=== PATIENT | female | born 1990 | race Caucasian/White ===

== ENCOUNTER 2017-04-23 16:05 | Emergency (ER) | payer OTHER ==
[2017-04-23 16:44] VITALS: BP 91/55
--- NOTE | 2017-04-23 17:07 | UC ---
Throat Pain/Nasal Blaze HPI - HPI Summary HPI Summary: Pt presents with 1 week of sinus pain/pressure/congestion. 2 days ago developed dry cough and mild sore throat. She has been taking tylenol cold and flu with mild relief. Denies fever, chills, SOB, chest pain, abdominal pain, n/v/d/c - History of Current Complaint Chief Complaint: UCRespiratory Stated Complaint: CONGESTION,ST,COUGH Time Seen by Provider: 04/23/17 17:06 Hx Obtained From: Patient Hx Last Menstrual Period: <1 WEEK AGO Onset/Duration: Gradual Onset Severity: Moderate Pain Intensity: 4 Pain Scale Used: 0-10 Numeric Cough: Nonproductive - Allergies/Home Medications Allergies/Adverse Reactions: Allergies Allergy/AdvReac Type Severity Reaction Status Date / Time Penicillins [PCN] Allergy Severe Anaphylatic Verified 04/23/17 16:44 Shock Home Medications: Home Medications Hydrocodone Bitartrate [Zohydro ER] 5 mg PO BID PRN 04/23/17 [History Confirmed 04/23/17] PMH/Surg Hx/FS Hx/Imm Hx Previously Healthy: Yes - Surgical History Surgical History: Yes Surgery Procedure, Year, and Place: wisdom teeth,-, RIGHT FOOT SURGICAL REPAIR CHILD- NO HARDWARE PER PT - Family History Known Family History: Positive: Hypertension - Social History Lives: With Family Alcohol Use: None Substance Use Type: None Smoking Status (MU): Light Every Day Tobacco Smoker Type: eCigarettes Household Exposure Type: Cigarettes - Immunization History Most Recent Influenza Vaccination: none Review of Systems Constitutional: Negative Skin: Negative Eyes: Negative ENT: Sore Throat, Nasal Discharge, Sinus Congestion, Sinus Pain/Tenderness Respiratory: Cough Cardiovascular: Negative Gastrointestinal: Negative All Other Systems Reviewed And Are Negative: Yes Physical Exam Triage Information Reviewed: Yes Appearance: Well-Appearing, No Pain Distress, Well-Nourished Vital Signs: Initial Vital Signs Temp 98.8 F 04/23/17 16:41 Pulse 88 04/23/17 16:41 Resp 16 04/23/17 16:41 BP 91/55 04/23/17 16:41 Pulse Ox 100 04/23/17 16:41 Vital Signs Reviewed: Yes Eyes: Positive: Conjunctiva Clear. Negative: Conjunctiva Inflamed, Discharge ENT: Positive: Hearing grossly normal, Pharynx normal, Nasal congestion, Nasal drainage, TMs normal, Sinus tenderness, Uvula midline. Negative: Pharyngeal erythema, TM bulging, TM dull, TM red, Tonsillar swelling, Tonsillar exudate, Hoarse voice Neck: Positive: Supple, Nontender, No Lymphadenopathy Respiratory: Positive: Chest non-tender, Lungs clear, Normal breath sounds, No respiratory distress, No accessory muscle use Cardiovascular: Positive: RRR, No Murmur, Pulses Normal Neurological: Positive: Alert Psychological: Positive: Age Appropriate Behavior Skin: Negative: rashes Throat Pain/Nasal Course/Dx - Course Course Of Treatment: Sinusitis. Cough. She says that zpak does not work for her and she usually takes Clindamycin if she needs an antibiotic. - Differential Dx/Diagnosis Differential Diagnosis/HQI/PQRI: Pharyngitis, Sinusitis, Tonsillitis, URI Provider Diagnoses: Sinusitis. Cough Discharge - Discharge Plan Condition: Stable Disposition: HOME Prescriptions: Clindamycin HCl [Clindamycin 150 MG CAP*] 150 mg PO QID #40 cap Patient Education Materials: Sinusitis (ED) Referrals: Brook Costa [Primary Care Provider] - Additional Instructions: If you develop a fever, shortness of breath, chest pain, new or worsening symptoms - please call your PCP or go to the ED.
== END 2017-04-23 17:32 | disposition home or self-care (01) ==
LOC: UCEAST 16:05
DX: J32.9 Chronic sinusitis, unspecified (principal); R05 Cough; Z88.0 Allergy status to penicillin; F17.210 Nicotine dependence, cigarettes, uncomplicated
CPT/HCPCS: 99212; G0463

== ENCOUNTER 2017-07-28 17:33 | Emergency (ER) | payer OTHER ==
[2017-07-28 17:41] VITALS: BP 101/62
--- NOTE | 2017-07-28 18:17 | UC ---
Back Pain HPI - HPI Summary HPI Summary: pt has had upper back pain over past few weeks. SHe has had same pain with past -resolves when not . Sees Dr. Juarez for NOrco and "adjustments". also has recently seen OB. she was Rx'd Zantac by OB and TUMS. she says anything she eats or drinks causes pain to occur-even water,. NO N/V/D or fever. has felt baby move today many times - History of Current Complaint Chief Complaint: UCBackPain Stated Complaint: UPPER BACK PAIN/CHEST Time Seen by Provider: 07/28/17 18:00 Hx Obtained From: Patient Hx Last Menstrual Period: January 2017 ?: Yes Onset/Duration: Gradual Onset Timing: Intermittent Severity Initially: Moderate Severity Currently: Moderate Pain Intensity: 8 Back Pain: Is Discrete @ - upper left back Character: Aching Aggravating Factor(s): Movement, Other - eating/drinking Alleviating Factor(s): Position Associated Signs And Symptoms: Positive: Negative - Allergies/Home Medications Allergies/Adverse Reactions: Allergies Allergy/AdvReac Type Severity Reaction Status Date / Time Penicillins Allergy Anaphylatic Verified 07/28/17 17:41 Shock Home Medications: Home Medications Acetaminophen [Tylenol Extra Strength] 500 mg PO DAILY 07/28/17 [History Confirmed 07/28/17] PMH/Surg Hx/FS Hx/Imm Hx Previously Healthy: Yes - Surgical History Surgical History: Yes Surgery Procedure, Year, and Place: wisdom teeth,-, RIGHT FOOT SURGICAL REPAIR CHILD- NO HARDWARE PER PT - Family History Known Family History: Positive: Hypertension - Social History Occupation: Unemployed Lives: With Family Alcohol Use: None Substance Use Type: Prescribed Smoking Status (MU): Light Every Day Tobacco Smoker Type: eCigarettes Household Exposure Type: Cigarettes Cessation Counseling: Patient Advised to Stop - Immunization History Most Recent Influenza Vaccination: none Review of Systems Constitutional: Negative Respiratory: Negative Cardiovascular: Negative Gastrointestinal: Negative Neurovascular: Negative Neurological: Negative Psychological: Negative Is Patient Immunocompromised?: No All Other Systems Reviewed And Are Negative: Yes Physical Exam Triage Information Reviewed: Yes Appearance: Well-Appearing, No Pain Distress, Well-Nourished Vital Signs: Initial Vital Signs Temp 98.8 F 07/28/17 17:37 Pulse 108 07/28/17 17:37 Resp 12 07/28/17 17:37 BP 101/62 07/28/17 17:37 Pulse Ox 100 07/28/17 17:37 Vital Signs Reviewed: Yes Respiratory Exam: Normal Cardiovascular Exam: Normal Abdominal Exam: Other - gravid and non-tender Musculoskeletal: Positive: Strength Intact, ROM Intact, Other: - palp tenderness upper back, no rash or swelling Neurological Exam: Normal Neurological: Positive: Alert Psychological Exam: Normal Skin Exam: Normal Back Pain Course/Dx - Differential Dx/Diagnosis Differential Diagnosis/HQI/PQRI: Strain, Sprain, Other - gallbladder disease, esophagitis Provider Diagnoses: esophagitis Discharge - Sign-Out/Discharge Documenting (check all that apply): Discharge - Discharge Plan Condition: Stable Disposition: HOME Patient Education Materials: Esophagitis (ED) Referrals: Jayshree HI,Brook Phipps [Primary Care Provider] - Additional Instructions: follow-up with [facility] on Sunday for recheck eat small meals with bland diet If at anytime your symptoms change or worsen-please report to ER - Billing Disposition and Condition Condition: STABLE Disposition: HOME
== END 2017-07-28 18:20 | disposition home or self-care (01) ==
LOC: UCEAST 17:33
DX: K20.9 Esophagitis, unspecified (principal); M54.6 Pain in thoracic spine; Z88.0 Allergy status to penicillin; F17.210 Nicotine dependence, cigarettes, uncomplicated
CPT/HCPCS: 99211; G0463

== ENCOUNTER 2017-10-26 06:16 | Inpatient (IN) | payer OTHER ==
[2017-10-26] MEDS ORDERED: Famotidine IV* 10 MG/ML 2 ML (20 mg) IV ONE (07:00)
[2017-10-26] MEDS ORDERED: Sodium Citrate/Citric Acid* 15 ML UDC PO ONE (07:00)
[2017-10-26] MEDS ORDERED: Buffered Lidocaine 0.9% SYRIN* 5 ML/SYR SYRINGE INTRADERM ONE (07:00)
[2017-10-26] MEDS ORDERED: Clindamycin 900 MG IVPREMIX(* 900 MG/50 ML SDV IV ONE (07:12)
[2017-10-26] MEDS ORDERED: Gentamicin ADULT (*) 300 MG in NS 0.9% 100 ML* 100 ML IVPB ONE (07:15)
[2017-10-26] MEDS ORDERED: Morphine PF AMP (0.5MG/ML)* 5 MG/10 ML AMP ONE (07:21)
[2017-10-26] MEDS ORDERED: OXYTOCIN* 10 UNITS/ML 1 ML VIAL ONE (07:22)
[2017-10-26] MEDS ORDERED: Ondansetron INJ* 2 MG/ML VIAL ONE (07:22)
[2017-10-26] MEDS ORDERED: Dexamethasone IV* 4 MG/ML 1 ML (4 MG) ONE (07:22)
[2017-10-26] MEDS ORDERED: Bupivacaine-MPF SPINAL* 7.5 MG/ML - 2ML AMP ONE (07:28)
[2017-10-26] MEDS ORDERED: Bupivacaine 0.25% W/EPI* 10 ML SDV ONE (07:28)
[2017-10-26] MEDS ORDERED: Phenylephrine IV* 40 MCG/ML 10 ML SYRINGE ONE (08:38)
[2017-10-26] MEDS ORDERED: Ketorolac INJ* 30 MG/ML 1 ML VIAL IV PRN (08:39)
[2017-10-26] MEDS ORDERED: Naloxone* 0.4 MG/ML 1 ML VIAL IV PRN ×2 (08:39)
[2017-10-26] MEDS ORDERED: oxyCODONE/Acetamin 5/325 MG* TAB PO PRN ×3 (08:39→09:05)
[2017-10-26] MEDS ORDERED: fentaNYL* 50 MCG/ML 2 ML VIAL (100 MCG VIAL) IV PRN (08:39)
[2017-10-26] MEDS ORDERED: DiMENhydriNATE IV* 50 MG/ML VIAL IV PUSH PRN (08:39)
[2017-10-26] MEDS ORDERED: Nalbuphine* 10 MG/ML 1 ML VIAL IV PRN (08:39)
[2017-10-26] MEDS ORDERED: Ondansetron INJ* 2 MG/ML VIAL IV PRN (08:39)
[2017-10-26] MEDS ORDERED: Witch Hazel PAD* JAR TOPICAL PRN (09:05)
[2017-10-26] MEDS ORDERED: Glycerin ADULT SUPP PR PRN (09:05)
[2017-10-26] MEDS ORDERED: Acetaminophen TAB* 325 MG PO PRN (09:05)
[2017-10-26] MEDS ORDERED: Ibuprofen TAB* 600 MG PO PRN (09:05)
[2017-10-26] MEDS ORDERED: Dibucaine 1% 28.35 GM TUBE PR PRN (09:05)
[2017-10-26] MEDS ORDERED: Oxytocin in LR* 20 UNITS/1,000 ML BAG IVPB SCH (10:00)
[2017-10-26] MEDS: Ibuprofen TAB* 600 MG PO SCH ×2 (11:10→18:00)
[2017-10-26] MEDS ORDERED: oxyCODONE/Acetamin 5/325 MG* TAB ONE (11:51)
[2017-10-26] MEDS: oxyCODONE/Acetamin 5/325 MG* TAB PO PRN ×2 (11:53→20:02)
[2017-10-26] MEDS: Simethicone TAB* 80 MG TAB.CHEW PO SCH ×3 (14:52→20:02)
[2017-10-26] MEDS: Docusate CAP* 100 MG PO SCH (19:15)
[2017-10-27] MEDS ORDERED: Acetaminophen TAB* 325 MG PO PRN
[2017-10-27] MEDS: Ibuprofen TAB* 600 MG PO SCH ×2 (00:10→11:43)
[2017-10-27] MEDS: oxyCODONE/Acetamin 5/325 MG* TAB PO PRN ×6 (00:10→21:47)
--- NOTE | 2017-10-27 02:41 | OP ---
OPERATIVE REPORT: DATE OF OPERATION: 10/26/17. DATE OF : 88. SURGEON: Beth Lemus MD LINE ASSEMBLY UTILITY WORKER: Bettye Mohamud MD ANESTHESIOLOGIST: Dr. Hernandez. ANESTHESIA: Spinal. PRE-OP DIAGNOSIS: Intrauterine at 39-0/7 weeks, desires repeat section. POST-OP DIAGNOSIS: Intrauterine at 39-0/7 weeks, desires repeat section, delivere d. OPERATIVE PROCEDURE: Repeat low-transverse section. ESTIMATED BLOOD LOSS: 500 mL. FLUIDS: 1300 mL of crystalloid. URINE OUTPUT: 100 mL of clear yellow urine. FINDINGS: Revealed a vertex female , Apgars 9 at 1 minute and 9 at 5 minutes. Weight was 7 po unds 11 ounces. No nuchal cord. No meconium. Normal- appearing tubes and ovaries bilaterally. Nor justice palpated uterine cavity without evidence of retained placenta or membranes. Please note that t he lower uterine segment was 2-mm thickness in its finished area and that hair and membranes co uld be seen through this window of tissue in the lower uterine segments. COMPLICATIONS: None apparent. DISPOSITION: Stable to recovery room. DESCRIPTION OF PROCEDURE: The patient was placed in dorsal lithotomy position. Abdomen was prepped a nd draped in a sterile standard fashion. Anesthesia was tested to appropriate level. An incision wa s made to prior incision after universal protocol was completed for correct procedure, patient, and p osition, and testing for adequate anesthesia. This incision was carried down through the fascia. Fa scial incision was then extended laterally and superiorly using curved Ferreira scissors. Fascia was sep arated superiorly and inferiorly with blunt and sharp dissection, and the peritoneum was then entered bluntly. The peritoneal incision was extended superiorly and inferiorly by directly visualizing bow el and bladder. The bladder blade was inserted. The lower uterine segment was identified and noted t o have this window within the lower uterine segment. As I said the head and hair could b e seen through this 2 mm thickness of the uterine wall. Amniotomy was created with scalpel and this i ncision was extended bluntly. The infant was delivered vertex, anterior-posterior shoulder delivered . No nuchal cord. No meconium. The cord was allowed to pulse for greater than 60 seconds, and the cord was clamped and then cut, and the infant was then handed off to awaiting railroad yard worker, Dr. Nicol portillo. Appropriate cord blood was obtained. Placenta was then manually extracted and noted to be in tact with 3-vessel cord. The uterus was exteriorized, wrapped in warm, moist laparotomy sponge, and the uterine cavity was explored, noted to be free of any placental tissue or membranes. A broad Andrew s was placed on the lower uterine segment and angle of the uterus, and hysterotomy site was reapproxi mated in 2 layers, first layer running locked 0 Vicryl, second layer running imbricated 0 Vicryl for complete hemostasis and reapproximation of the hysterotomy site. The uterus was returned intraabdomi neil after normal tubes and ovaries were visualized. The peritoneum was then clamped with Judith and the lower uterine segment and hysterotomy site was re-visualized and noted to be hemostatic. The per itoneum was then reapproximated with 3-0 Vicryl in a running fashion. The subfascial area was visual ized and noted to be hemostatic. Fascia was reapproximated using 0 Vicryl x2 in a running fashion, s ubcu, was lavaged, hemostasis assured, and the skin was reapproximated using 4-0 Monocryl in a subcut icular fashion. Mastisol and Steris were applied. All sponge, needles, and blade counts were correc t throughout the case. The patient tolerated the procedure well. [id number]/[facility] #: [id number]
[2017-10-27] MEDS: Ibuprofen TAB* 600 MG PO PRN ×3 (05:40→20:28)
[2017-10-27 05:57] LABS: Hematocrit 29 % (35-47); Hemoglobin 9.4 g/dl (12.0-16.0); Mean Corpuscular HGB Conc 33 g/dl (31-36); Mean Corpuscular Hemoglobin 26 pg (27-31); Mean Corpuscular Volume 79 fL (80-97); Mean Platelet Volume 7.8 um3 (7.4-10.4); Platelet Count 227 10^3/ul (150-450); Red Blood Count 3.65 10^6/ul (4.00-5.40); Red Cell Distribution Width 16 % (10.5-15); White Blood Count 17.4 10^3/ul (3.5-10.8)
[2017-10-27 06:26] LABS: ABS Basophils 0.1 10^3/ul (0-0.2); ABS Eosinophils 0.1 10^3/ul (0-0.6); ABS Lymphocytes 2.6 10^3/ul (1.0-4.8); ABS Monocytes 2.1 10^3/ul (0-0.8); ABS Neutrophils 12.5 10^3/ul (1.5-7.7); ABS Nucleated RBC 0 10^3/ul; Eosinophil % 0.4 % (0-6); Lymphocyte % 14.9 % (25-47); Nucleated Red Blood Cells % 0
[2017-10-27] MEDS: Docusate CAP* 100 MG PO SCH ×4 (09:19→20:28)
[2017-10-27] MEDS: Simethicone TAB* 80 MG TAB.CHEW PO SCH ×3 (09:19→20:28)
[2017-10-27] MEDS: Ferrous Gluconate TAB* 324 MG TAB PO SCH ×2 (09:20→20:28)
[2017-10-27] MEDS: PRENATAL PO SCH (15:57)
[2017-10-27] MEDS: [UNRECOGNIZED DRUG - OTHER] PO SCH (15:57)
[2017-10-28] MEDS: Ibuprofen TAB* 600 MG PO PRN ×2 (02:13→08:31)
[2017-10-28] MEDS: oxyCODONE/Acetamin 5/325 MG* TAB PO PRN ×3 (02:13→10:25)
[2017-10-28 08:09] VITALS: BP 91/49
[2017-10-28] MEDS: Ferrous Gluconate TAB* 324 MG TAB PO SCH (08:30)
[2017-10-28] MEDS: Simethicone TAB* 80 MG TAB.CHEW PO SCH ×2 (09:01→10:25)
[2017-10-28] MEDS: [UNRECOGNIZED DRUG - OTHER] PO SCH (09:02)
[2017-10-28] MEDS: PRENATAL PO SCH (09:02)
[2017-10-28] MEDS: Docusate CAP* 100 MG PO SCH (09:02)
== END 2017-10-28 10:46 | disposition home or self-care (01) | DRG 540 ==
LOC: MCHOB 06:16 → EDSTATUS 07:45 → MCHOB 10:31
PROVIDERS: ADMIT Obstetrics & Gynecology; ATTEND Obstetrics & Gynecology
PROC: 10D00Z1 Extraction of Products of Conception, Low, Open Approach (ICD-10-PCS; principal; 2017-10-26 07:45)
DX: O34.211 Maternal care for low transverse scar from previous cesarean delivery (principal); Z3A.39 39 weeks gestation of pregnancy; Z37.0 Single live birth
CPT/HCPCS: 36415; 80307; 85025; A9270-GY; J1100; J1580; J2405; J2590

== ENCOUNTER 2019-05-18 06:34 | Emergency (ER) | payer OTHER ==
[2019-05-18] MEDS ORDERED: Ketorolac INJ* 30 MG/ML 1 ML VIAL IV ONE (07:15)
[2019-05-18] MEDS ORDERED: NS 0.9% 1000 ML** 1,000 ML IV ONE ×2 (07:15→09:20)
--- NOTE | 2019-05-18 07:23 | ED ---
Headache - HPI Summary HPI Summary: 29 year old female presents to the ED with a chief complaint of headache starting two days ago. She reports having previous migraines, last episode 8 months ago, but this case feels worse. Headache came on gradually, was not sudden in onset. She tried motrin at home which did not help. She also reports photophobia (similar to prior migraines). She also reports a productive cough and lower back pain (hx similar), both starting 2 days ago. Additionally, patient feels pain and throbbing in her ears bilaterally, stiffness of her lateral neck, and photophobia. Sh reports feeling like "pressing thumbs into the back of her neck". Patient denies fever, nausea, and dysuria. History of chronic hip pain, for which she is prescribed hydrocodone. She follows w pain management. - History Of Current Complaint Chief Complaint: EDGeneral Stated Complaint: GENERAL ILLNESS PER PT Time Seen by Provider: 05/18/19 06:59 Hx Obtained From: Patient Hx Last Menstrual Period: January 2017 Onset/Duration: Gradual Onset, Started days ago, Worse Since - 2 days ago Initially Headache Was: Severe Currently Pain Is: Severe Timing: Days Character: Migraine Location of Headache: Diffuse Aggravating Factor: Position Change, Bright Lights Associated Signs And Symptoms: Neck Stiffness, Other (Noted In Comments) - hears heartbeat in ears, lower back pain, productive cough - Allergies/Home Medications Allergies/Adverse Reactions: Allergies Allergy/AdvReac Type Severity Reaction Status Date / Time Penicillins Allergy Severe Anaphylatic Verified 10/25/17 16:11 Shock PMH/Surg Hx/FS Hx/Imm Hx Endocrine/Hematology History: Denies: Hx Diabetes, Hx Thyroid Disease Cardiovascular History: Denies: Hx Hypertension, Hx Pacemaker/ICD Respiratory History: Reports: Hx Asthma Denies: Hx Chronic Obstructive Pulmonary Disease (COPD) GI History: Denies: Hx Ulcer History: Denies: Hx Kidney Infection, Hx Renal Disease, Other Problems/Disorders Sensory History: Denies: Hx Hearing Aid Psychiatric History: Reports: Hx Anxiety Denies: Hx Depression, Hx Panic Disorder, Other Psychiatric Issues/Disorders - Surgical History Surgery Procedure, Year, and Place: wisdom teeth,-, RIGHT FOOT SURGICAL REPAIR CHILD- NO HARDWARE PER PT - Immunization History Date of Tetanus Vaccine: 3 YEARS AGO Date of Influenza Vaccine: NONE Infectious Disease History: No Infectious Disease History: Denies: Hx Clostridium Difficile, Hx Hepatitis, Hx Human Immunodeficiency Virus (HIV), Hx of Known/Suspected MRSA, Hx Shingles, Hx Tuberculosis, Hx Known/ Suspected VRE, Hx Known/Suspected VRSA, History Other Infectious Disease, Traveled Outside the [place] in Last 30 Days - Family History Known Family History: Positive: Hypertension - Social History Alcohol Use: None Substance Use Type: Reports: None Substance Use Comment - Amount & Last Used: Hydrocodone this Smoking Status (MU): Former Smoker Type: eCigarettes Amount Used/How Often: Daily Have You Smoked in the Last Year: Yes Review of Systems Negative: Fever Positive: Photophobia Positive: Ear Ache Negative: Chest Pain Positive: Cough Negative: Nausea Negative: dysuria Positive: Myalgia - in back Positive: Headache All Other Systems Reviewed And Are Negative: Yes Physical Exam - Summary Physical Exam Summary: Constitutional: Well-developed, Well-nourished, Alert. (-) Distressed Skin: Warm, Dry HENT: Normocephalic; Atraumatic Eyes: Conjunctiva normal Neck: Musculoskeletal ROM normal neck. (-) JVD, (-) Stridor, (-) Nuchal rigidity. +tenderness bilateral trapezius muscles. lateral neck ROM limited 2/2 pain Cardio: Rhythm regular, rate normal, Heart sounds normal; Intact distal pulses; Radial pulses are 2+ and symmetric. (-) Murmur Pulmonary/Chest wall: Effort normal. (-) Respiratory distress, (-) Wheezes, (-) Rales Abd: Soft, (-) tenderness, (-) Distension, (-) Guarding, (-) Rebound Musculoskeletal: (-) Edema, +TTP paraspinal TL spine, no midline tenderness. Lymph: (-) Cervical adenopathy Neuro: Alert, Oriented x3 Psych: Mood and affect Normal Triage Information Reviewed: Yes Vital Signs On Initial Exam: Initial Vitals Temp Pulse Resp BP Pulse Ox 99.1 F 111 20 108/70 98 05/18/19 06:42 05/18/19 06:42 05/18/19 06:42 05/18/19 06:42 05/18/19 06:42 Vital Signs Reviewed: Yes Procedures - Sedation Patient Received Moderate/Deep Sedation with Procedure: No Diagnostics - Vital Signs Vital Signs Temp Pulse Resp BP Pulse Ox 05/18/19 06:42 99.1 F 111 20 108/70 98 - Laboratory Result Diagrams: 05/18/19 07:37 05/18/19 07:37 Lab Statement: Any lab studies that have been ordered have been reviewed, and results considered in the medical decision making process. - Radiology Chest XR Radiology Interpretation Completed By: Radiologist Summary of Radiographic Findings: IMPRESSION: NO ACUTE CARDIOPULMONARY PROCESS BY RADIOGRAPH. An ED physician has reviewed this report. Re-Evaluation - Re-Evaluation First Eval Re-Evaluation Time: 08:33 Change: Improved Comment: Patient's condition is improved slightly. Myalgia remains. Second Eval Re-Evaluation Time: 09:20 Change: Improved Comment: Patient feels much better. Third Eval Re-Evaluation Time: 10:01 Change: Improved Comment: Patient feels improved and wants to go home. She is finishing fluids and then she will be discharged. D/w her return precautions. Headache Course/Dx - Course Course Of Treatment: 29 y/o F w hx migraines, chronic pain 2/2 MSK injury p/w cough, mylagias and migraine. - VS mild tachycardia, afebrile. Although does NOT have a history of headache of exactly the same type, pain was not sudden onset/thunderbolt, not worst of life, no meningismus (does have lateral pain), no neuro deficit on exam, and no personal/family history of aneurysm, so unlikely ICH. No known/suspected cancer and neuro exam WNL, so unlikely mass lesion. No fever, meningismus, or known immunocompromised state to suggest meningitis. Therefore no imaging ordered and no LP performed at this point. Will try symptomatic relief and reassess. - check labs including CBC to assess for infection, CXR for productive cough. - given NS, toradol, reglan for h/a. - regarding back pain, hx similar, no trauma no infectious symptoms, no dysuria or renal symptoms. No weakness or numbness. Imaging deferred. - Diagnoses Provider Diagnoses: Migraine, Cough, Lower back pain Discharge ED - Sign-Out/Discharge Documenting (check all that apply): Patient Departure - discharge home - Discharge Plan Condition: Stable Disposition: HOME Patient Education Materials: Migraine Headache (ED), Low Back Strain (ED), Acute Cough (ED) Referrals: Brook Martell PA [Primary Care Provider] - Additional Instructions: You were seen in the emergency department for headache. If any studies were not completed at the time of discharge you will be called with the relevant results. Please follow up with your primary care doctor in the next 2-3 days and return to the emergency department for worsening or concerning symptoms. It was a pleasure taking care of you today. - Billing Disposition and Condition Condition: STABLE Disposition: Home - Attestation Statements Document Initiated by Aziza: Yes Documenting Scribe: Tj Gallegos Provider For Whom Aziza is Documenting (Include Credential): Radha Becker MD Scribe Attestation: ITj, scribed for Radha Becker MD on 05/18/19 at 1111. Scribe Documentation Reviewed: Yes Provider Attestation: The documentation as recorded by the scribeTj accurately reflects the service I personally performed and the decisions made by , Radha Becker MD Status of Scribe Document: Viewed
[2019-05-18 07:48] LABS: ABS Lymphocytes 0.4 10^3/ul (1.0-4.8); ABS Monocytes 0.7 10^3/ul (0-0.8); Eosinophil % 0.2 %; Hematocrit 41 % (35-47); Hemoglobin 13.9 g/dL (12.0-16.0); Lymphocyte % 7.5 %; Mean Corpuscular HGB Conc 34 g/dL (31-36); Mean Corpuscular Hemoglobin 30 pg (27-31); Mean Corpuscular Volume 88 fL (80-97); Mean Platelet Volume 7.4 fL (7.4-10.4); Nucleated Red Blood Cells % 0.1; Platelet Count 216 10^3/uL (150-450); Red Blood Count 4.63 10^6 /uL (3.70-4.87); Red Cell Distribution Width 13 % (10-15); White Blood Count 5.1 10^3/uL (3.5-10.8)
[2019-05-18 08:03] LABS: ALT 8 U/L (7-52); AST 13 U/L (13-39); Albumin 4.1 g/dL (3.2-5.2); Albumin/Globulin Ratio 1.6 (1-3); Alkaline Phosphatase 52 U/L (34-104); Anion Gap 5 mmol/L (2-11); BUN/Creatinine Ratio 23.8 (8-20); Blood Urea Nitrogen 19 mg/dL (6-24); CO2 Carbon Dioxide 26 mmol/L (22-32); Calcium 8.6 mg/dL (8.6-10.3); Chloride 108 mmol/L (101-111); EGFR African American 101.9 (>60); EGFR Non-African American 84.2 (>60); Globulin 2.5 g/dL (2-4); Glucose 106 mg/dL (70-100); Potassium 3.8 mmol/L (3.5-5.0); Sodium 139 mmol/L (135-145); Total Protein 6.6 g/dL (6.4-8.9)
[2019-05-18 08:11] LABS: HCG Pregnancy < 0.60 mIU/mL
[2019-05-18] MEDS ORDERED: Magnesium Sulfate 1 GM IV* 1 GM/100 ML BAG IV ONE (09:20)
[2019-05-18 11:00] VITALS: BP 104/65
== END 2019-05-18 10:55 | disposition home or self-care (01) ==
LOC: ED 06:34
DX: G43.909 Migraine, unspecified, not intractable, without status migrainosus (principal); R05 Cough; M54.5 Low back pain; Z88.0 Allergy status to penicillin; Z87.891 Personal history of nicotine dependence
CPT/HCPCS: 36415; 71046; 80053; 84702; 85025; 96361; 96365; 96375; 99283; J1885; J3475